=== PATIENT | male | born 1955 | race Hispanic/Latino ===

== ENCOUNTER 2020-11-17 12:59 | Emergency (ER) | payer MEDICARE ==
[~2020-11-17] VITALS: Ht 167.6 cm; Wt 70.5 kg
[~2020-11-17 12:59] MED LIST: ATENOLOL25 MG PO; KEFLEX500 MG OR; LORTAB 5 OR; NO HOME MEDS
[2020-11-17 14:20] VITALS: BP 126/76
== END 2020-11-17 14:20 | disposition home or self-care (01) ==
LOC: ED 12:59
PROC: 0HQGXZZ Repair Left Hand Skin, External Approach (ICD-10-PCS; principal; 2020-11-17)
DX: S61.012A Laceration without foreign body of left thumb without damage to nail, initial encounter (principal); I10 Essential (primary) hypertension; W26.0XXA Contact with knife, initial encounter; Y93.89 Activity, other specified; Y92.009 Unspecified place in unspecified non-institutional (private) residence as the place of occurrence of the external cause

== ENCOUNTER 2021-03-13 08:34 | Emergency (ER) | payer MEDICARE ==
[~2021-03-13] VITALS: Ht 167.6 cm; Wt 68.1 kg
[2021-03-13 09:20] LABS: HEMATOCRIT 42.3 % (39.0-50.0); HEMOGLOBIN 13.8 g/dl (14.0-18.0); IMMATURE GRANULOCYTES 0.2 % (0.0-5.0); MEAN CELL VOLUME 96.8 fL CALC (80.0-100.0); MEAN CORPUSCULAR HGB 31.6 pG CALC (26.0-32.0); MEAN CORPUSCULAR HGB CONC 32.6 g/dL CAL (32.0-36.0); NEUT# 2.04 thou/uL (1.82-7.42); RED BLOOD COUNT 4.37 mill/uL (4.70-6.10); RED CELL DISTRI WIDTH 11.6 % (11.5-15.5)
[2021-03-13 09:42] LABS: ALBUMIN 4.3 g/dL (3.2-5.0); ALKALINE PHOSPHATASE 63 u/l (38-126); BILIRUBIN, TOTAL 0.5 mg/dL (0.0-1.4); BUN 7 mg/dL (8-23); BUN/CREATININE RATIO 14 (12-20 (CALC)); CARBON DIOXIDE 29 mmol/l (22-30); CHLORIDE 102 mmol/l (95-108); CREATININE 0.5 mg/dL (0.7-1.3); GFR > 60 ML/MIN (>=60 (CALC)); GFR FOR AFR.AMER. > 60 ML/MIN (>=60 (CALC)); POTASSIUM 3.7 mmol/l (3.5-5.1); TOTAL PROTEIN 8.1 g/dL (6.3-8.2)
[2021-03-13 09:44] LABS: ANION GAP 9 (6-22 (CALC)); SGOT/AST 49 u/l (19-48); SODIUM 136 mmol/l (137-146)
[2021-03-13] MEDS ORDERED: PREDNISONE20 MG PO (14:51)
[2021-03-13] MEDS ORDERED: IPRATROPIU0.5 MG/3 M IN (14:51)
[2021-03-13] MEDS ORDERED: ZPAK PO (14:51)
[2021-03-13 15:08] VITALS: BP 158/73
== END 2021-03-13 15:09 | disposition home or self-care (01) ==
LOC: ED 08:34
PROVIDERS: Emergency Medicine
DX: J40 Bronchitis, not specified as acute or chronic (principal); I10 Essential (primary) hypertension

== ENCOUNTER 2021-03-24 16:07 | Emergency (ER) | payer OTHER, MEDICARE ==
[~2021-03-24] VITALS: Ht 167.6 cm; Wt 70.0 kg
[~2021-03-24 16:07] MED LIST changes: +IPRATROPIU0.5 MG/3 M IN; +PREDNISONE20 MG PO; +ZPAK PO
[2021-03-24 17:11] LABS: HEMATOCRIT 42.7 % (39.0-50.0); HEMOGLOBIN 14.1 g/dl (14.0-18.0); IMMATURE GRANULOCYTES 0.5 % (0.0-5.0); MEAN CELL VOLUME 96.6 fL CALC (80.0-100.0); MEAN CORPUSCULAR HGB 31.9 pG CALC (26.0-32.0); NEUT# 4.89 thou/uL (1.82-7.42); RED BLOOD COUNT 4.42 mill/uL (4.70-6.10); RED CELL DISTRI WIDTH 11.5 % (11.5-15.5)
[2021-03-24 17:24] LABS: ALBUMIN 4.4 g/dL (3.2-5.0); ALKALINE PHOSPHATASE 48 u/l (38-126); AMYLASE 59 u/l (30-110); ANION GAP 10 (6-22 (CALC)); BILIRUBIN, TOTAL 0.7 mg/dL (0.0-1.4); BUN 13 mg/dL (8-23); BUN/CREATININE RATIO 20 (12-20 (CALC)); CARBON DIOXIDE 31 mmol/l (22-30); CHLORIDE 100 mmol/l (95-108); CREATININE 0.7 mg/dL (0.7-1.3); GFR > 60 ML/MIN (>=60 (CALC)); GFR FOR AFR.AMER. > 60 ML/MIN (>=60 (CALC)); LIPASE 127 u/l (23-300); POTASSIUM 4.1 mmol/l (3.5-5.1); SGOT/AST 33 u/l (19-48); SODIUM 138 mmol/l (137-146); TOTAL PROTEIN 7.9 g/dL (6.3-8.2)
[2021-03-24 17:28] LABS: ACT PARTIAL THROMBO TIME 20.9 SECONDS (20.0-32.5); PROTHROMBIN TIME 10.1 SECONDS (9.0-12.5)
[2021-03-24] MEDS ORDERED: ULTRAM50 MG PO (17:46)
[2021-03-24 18:07] LABS: URINE BILIRUBIN - DIPSTICK NEGATIVE (NEGATIVE); URINE BLOOD DIPSTICK NEGATIVE (NEGATIVE); URINE COLOR YELLOW; URINE GLUCOSE - DIPSTICK NEGATIVE (NEGATIVE); URINE KETONE TRACE mg/dL (NEGATIVE); URINE LEUK ESTERASE NEGATIVE (NEGATIVE); URINE PH 5.5 (4.5-8.0); URINE PROTEIN - DIPSTICK NEGATIVE (NEG-TRACE); URINE UROBILINOGEN - DIPSTICK 0.2 E.U./dL (0.2)
[2021-03-24 18:08] LABS: URINE NITRITE - DIPSTICK NEGATIVE (Negative)
[2021-03-24 18:15] VITALS: BP 110/71
== END 2021-03-24 18:17 | disposition home or self-care (01) | DRG 605 ==
LOC: ED 16:07
DX: S00.03XA Contusion of scalp, initial encounter (principal); S16.1XXA Strain of muscle, fascia and tendon at neck level, initial encounter; S39.012A Strain of muscle, fascia and tendon of lower back, initial encounter; S30.1XXA Contusion of abdominal wall, initial encounter; I10 Essential (primary) hypertension; V53.6XXA Passenger in pick-up truck or van injured in collision with car, pick-up truck or van in traffic accident, initial encounter
CPT/HCPCS: Q9967

== ENCOUNTER 2022-04-30 09:07 | Day surgery (SDC) | payer MEDICARE ==
[~2022-04-30] VITALS: Ht 167.6 cm; Wt 66.2 kg
[~2022-04-30 09:07] MED LIST changes: +CLARISPRAY50 MCG/ACT NS; +NORVASC5 M1 PO; +OMEPRAZOLE DR40 MG PO; +ULTRAM50 MG PO
[2022-04-30 13:38] VITALS: BP 163/86
== END 2022-04-30 12:22 | disposition home or self-care (01) ==
LOC: ENDO 09:07 → ORM 09:30 → ENDO 09:30
PROVIDERS: ATTEND Surgery
PROC: 0DB48ZX Excision of Esophagogastric Junction, Via Natural or Artificial Opening Endoscopic, Diagnostic (ICD-10-PCS; principal; 2022-04-30)
PROC: 0DJD8ZZ Inspection of Lower Intestinal Tract, Via Natural or Artificial Opening Endoscopic (ICD-10-PCS; 2022-04-30)
DX: K21.00 Gastro-esophageal reflux disease with esophagitis, without bleeding (principal); K44.9 Diaphragmatic hernia without obstruction or gangrene; K57.30 Diverticulosis of large intestine without perforation or abscess without bleeding; I10 Essential (primary) hypertension; Z63.4 Disappearance and death of family member; Z73.3 Stress, not elsewhere classified